=== PATIENT | male | born 1960 | race Caucasian/White ===

== ENCOUNTER 2022-08-01 12:16 | Emergency (ER) | payer OTHER ==
[~2022-08-01] VITALS: Ht 185.4 cm; Wt 129.1 kg
[2022-08-01 12:23] VITALS: TEMP 98.5
[2022-08-01 13:13] LABS: COLLECTION METHOD CLEAN CATCH
[2022-08-01 13:28] LABS: MUCOUS Present (NOT PRESENT); SQUAMOUS EPITHELIAL 0-2 /hpf (0-10); URINE APPEARANCE Hazy (CLEAR/HAZY); URINE BACTERIA Occasional /hpf (NONE SEEN); URINE COLOR Yellow (YELLOW); URINE RBC >50 /hpf (0-2)
[2022-08-01 13:29] LABS: URINE BLOOD 3+ (NEGATIVE); URINE GLUCOSE TRACE (NEGATIVE); URINE KETONE Negative (NEGATIVE); URINE NITRATE Negative (NEGATIVE); URINE PROTEIN(semi-quant) 1+ (NEGATIVE); URINE UROBILINOGEN 0.2 E.U/dL (0.2-1.0)
[2022-08-01] MEDS ORDERED: LEVAQUIN 5500 MG/TA1 PO (13:47)
[2022-08-01 14:44] VITALS: BP 131/89; PULSE 65
== END 2022-08-01 14:45 | disposition home or self-care (01) ==
LOC: COL.ER 12:16
PROVIDERS: Emergency Medicine
DX: N39.0 Urinary tract infection, site not specified (principal); N45.1 Epididymitis
CPT/HCPCS: J0696